=== PATIENT | male | born 1995 | race Caucasian/White ===

== ENCOUNTER 2020-07-06 11:50 | Emergency (ER) | payer SELFPAY ==
[~2020-07-06] VITALS: Ht 193 cm; Wt 108.0 kg
[2020-07-06 11:58] VITALS: BP 120/73
--- NOTE | 2020-07-06 12:36 | PHYS DOC ---
Past History Past Medical History: Asthma, Bronchitis, Pneumonia, Other Additional Past Medical Histor: bowel irregularity (ANTWAN GLEASON APRN) Past Surgical History: No Surgical History (ANTWAN GLEASON APRN) Alcohol Use: Occasionally (ANTWAN GLEASON APRN) Adult General Chief Complaint Chief Complaint: HEADACHE HPI HPI Patient is a 24-year-old male patient who presents with headache for 1 month, with cough for the last month. Patient states no fevers, he had gone to work today, and was told he had a low body temperature and was told he needed to come to the hospital to be evaluated and have a Covid test before he goes back. Denies any specific shortness of breath, however does report he has felt some increased coughing anytime he tries to exert himself. Does endorse a history of asthma, for which he has been taking his inhaler 3 times a day, with little improvement. Does report he frequently gets bronchitis at this time of year, has been hospitalized for once in the past. He reports he has had chronic diarrhea for several years, with no change recently, he has tried to improve his diet light and high-fiber foods he continues to have diarrhea. Does report he has been working abdominals and eating fast food 5 times a day and reports he feels this did not help his GI symptoms. He does have a primary care however has not addressed any GI issues with them. (ANTWAN GLEASON APRN) Review of Systems Review of Systems Constitutional: Denies fever or chills reports malaise [] Eyes: Denies change in visual acuity, redness, or eye pain [] HENT: Denies nasal congestion or sore throat [] Respiratory: Reports cough, reports cough worsened with exertion, denies any specific shortness of breath] Cardiovascular: No additional information not addressed in HPI [] GI: Denies abdominal pain, nausea, vomiting, bloody stools reports chronic diarrhea [] : Denies dysuria or hematuria [] Musculoskeletal: Denies back pain or joint pain [] Integument: Denies rash or skin lesions does report he has had a lump on his forehead for a while [] Neurologic: Denies, focal weakness or sensory changes reports headache for the last month [] Endocrine: Denies polyuria or polydipsia [] All other systems were reviewed and found to be within normal limits, except as documented in this note. (ANTWAN GLEASON APRN) Allergies Allergies Allergies Uncoded Allergies Type Severity Reaction Last Updated Verified PET DANDER Allergy Unknown 07/06/20 (ANTWAN GLEASON APRN) Physical Exam Physical Exam Constitutional: Well developed, well nourished, no acute distress, non-toxic appearance. [] HENT: Normocephalic, atraumatic, bilateral external ears normal, oropharynx moist, no oral exudates, nose normal. [] Eyes: PERRLA, EOMI, conjunctiva normal, no discharge. [] Neck: Normal range of motion, no tenderness, supple, no stridor. [] Cardiovascular:Heart rate regular rhythm, no murmur [] Lungs & Thorax: Bilateral breath sounds clear to auscultation left lower lobe faint crackle conversational in multiple word sentences with no noted air hunger [] Abdomen: Bowel sounds normal, soft, no tenderness, no masses, no pulsatile masses. [] Skin: Warm, dry, no erythema, no rash. [] Back: No tenderness, no CVA tenderness. [] Extremities: No tenderness, no cyanosis, no clubbing, ROM intact, no edema. [] Neurologic: Alert and oriented X 3, normal motor function, normal sensory func tion, no focal deficits noted. [] Psychologic: Affect normal, judgement normal, mood normal. [] (ANTWAN GLEASON APRN) Current Patient Data Vital Signs Vital Signs Date Time Temp Pulse Resp B/P (MAP) Pulse Ox O2 Delivery O2 Flow Rate FiO2 07/06/20 11:58 97.8 82 20 120/73 (89) 97 (ANTWAN GLEASON APRN) EKG EKG [] (ANTWAN GLEASON APRN) Radiology/Procedures Radiology/Procedures []REASON: Cough PROCEDURE: CHEST AP ONLY Single view chest dated 07/06/2020: No comparison available. Clinical Indication: Cough. Findings: Single upright portable exam of the chest was performed. Heart size and mediastinal contours are within normal limits given technique. The lungs are clear without evidence of focal consolidation. Vascular interstitium is within normal limits. Impression:: No acute radiographic abnormality. Electronically signed by: Richie Mora MD (07/06/2020 12:55 PM) [id number] DICTATED AND SIGNED BY: RICHIE MORA MD (ANTWAN GLEASON APRN) Heart Score Risk Factors: Risk Factors: DM, Current or recent (<one month) smoker, HTN, HLP, family history of CAD, obesity. Risk Scores: Risk Factors: DM, Current or recent (<one month) smoker, HTN, HLP, family history of CAD, obesity. (ANTWAN GLEASON APRN) Course & Med Decision Making Course & Med Decision Making Pertinent Labs and Imaging studies reviewed. (See chart for details) []Patient without noted hypoxia, no air hunger. Presenting largely for covid test to return to work. Will do COVID test with recommendation to keep patient off work until he has negative test result. Will provide short course of alverto roids as patient using inhaler for asthma, with history of same, to decrease pulmonary inflammation and improve symptoms. Will recommend use of OTC cough medications as needed or provide Rx for cough medication if requested. Advise patient 2 days quarantine until COVID results, and if positive, 14 day quarantine. Discussed with patient, in agreement with plan without further questions or concerns. To follow up with PCP as needed and for GI symptoms. wants to take OTC cough medications. (ANTWAN GLEASON APRN) Course & Med Decision Making I oversaw on the above date of service of this patient and discussed the care with the [employer]. I agree with the findings, plan of care, and disposition as documented. Christine Crews DO Attending ED Physician (CHRISTINE CREWS DO) Be Disclaimer Be Disclaimer This electronic medical record was generated, in whole or in part, using a voice recognition dictation system. (ANTWAN GLEASON APRN) Departure Departure: Impression: Primary Impression: Bronchitis Additional Impression: Encounter for screening laboratory testing for COVID-19 virus in asymptomatic patient Disposition: 01 DC HOME SELF CARE/HOMELESS Condition: GOOD Referrals: PCP,NO (PCP) Patient Instructions: Acute Bronchitis, Cough, Adult Additional Instructions: As we discussed, take an hasx-bba-kgeyibs cough medication such as Mucinex or Delsym for your cough, take it according to the package directions. Take the steroids as prescribed, to help with your breathing. You may continue to use your inhaler, up to every 4 hours as needed for your breathing. As we discussed, your Covid test will take a 48 hours to come back, if it ends up positive, you will need to stay off of work for 14 days and follow the directions from your flare. If it returns negative, notify your employer that is negative and return to work according to their policy. Try to get into your primary care provider to discuss your chronic GI issues, they want to do any further evaluation of this. Scripts Methylprednisolone (MEDROL) 4 Mg Tab.ds.pk 1 PKG PO UD for bronchitis, #1 PKG Prov: ANTWAN GLEASON APRN 07/06/20 Problem Qualifiers ANTWAN GLEASON APRN Jul 06, 2020 12:36 CHRISTINE CREWS DO Jul 07, 2020 06:31
--- NOTE | 2020-07-06 12:57 | RAD ---
Single view chest dated 07/06/2020: No comparison available. Clinical Indication: Cough. Findings: Single upright portable exam of the chest was performed. Heart size and mediastinal contours are with in normal limits given technique. The lungs are clear without evidence of focal consolidation. Vascul ar interstitium is within normal limits. Impression:: No acute radiographic abnormality. Electronically signed by: Richie Mora MD (07/06/2020 12:55 PM) [id number]
[2020-07-06] MEDS ORDERED: METH4TAB2 PO (13:12)
== END 2020-07-06 13:48 | disposition home or self-care (01) ==
LOC: ER 11:50
DX: J45.909 Unspecified asthma, uncomplicated (principal); Z20.828 Contact with and (suspected) exposure to other viral communicable diseases; Z88.8 Allergy status to other drugs, medicaments and biological substances
CPT/HCPCS: 71045; 99284; C9803; U0003

== ENCOUNTER 2020-09-04 11:21 | Emergency (ER) | payer SELFPAY ==
[~2020-09-04] VITALS: Ht 193 cm; Wt 108.0 kg
[~2020-09-04 11:21] MED LIST: METH4TAB2 PO
[2020-09-04 11:27] VITALS: BP 120/73
[2020-09-04] MEDS ORDERED: IPRATRPIUM/ALBUTEROL 0.5/2.5MG 3 ML NEBU. NEB ONE (11:45)
[2020-09-04] MEDS ORDERED: methylPREDNISolone SOD SUCC PF 125 MG/2 ML VIAL. IM ONE (11:45)
--- NOTE | 2020-09-04 11:47 | PHYS DOC ---
Past History Past Medical History: Asthma, Bronchitis, Pneumonia, Other Additional Past Medical Histor: bowel irregularity Past Surgical History: No Surgical History Alcohol Use: Occasionally General Adult EDM: Chief Complaint: ASTHMA HPI: HPI: Patient is a 24-year-old male coming in for asthma exacerbation. Prior to arrival patient started having shortness of breath when he got to work. Patient states he was also treated for bronchitis with steroids and doxycycline and just finished his medications 3 days ago. Patient states he was feeling better prior to symptom this morning. Patient states he is using his rescue inhaler 9 times without improvement. Has a nonproductive cough. Denies any chest pain or fevers. States he otherwise has been well. Is unsure of what triggered his asthma exacerbation this morning. Review of Systems: Review of Systems: All other systems within normal limits except for as noted in the HPI Current Medications: Current Meds: Current Medications Medications (Trade) Dose Ordered Sig/Madalyn Start Time Stop Time Status Last Admin Dose Admin Albuterol/ Ipratropium (Duoneb) 3 ml 1X ONCE 09/04/20 11:45 09/04/20 11:46 Methylprednisolone Sodium Succinate (SOLU-Medrol 125MG VIAL) 125 mg 1X ONCE 09/04/20 11:45 09/04/20 11:46 Allergies: Allergies: Allergies Uncoded Allergies Type Severity Reaction Last Updated Verified PET DANDER Allergy Unknown 07/06/20 Physical Exam: PE: Constitutional: Well developed, well nourished, no acute distress, non-toxic appearance. Speaking full sentences [] HENT: Normocephalic, atraumatic, bilateral external ears normal, nose normal. [] Eyes: PERRLA, conjunctiva normal, no discharge. [] Neck: No rigidity, supple, no stridor. [] Cardiovascular: Regular rate and rhythm, brisk cap refill [] Lungs & Thorax: Non labored symmetric respirations, mild tachypnea, clear lung sounds without wheezing and good air movement] Abdomen: Soft, nondistended. Skin: Warm, dry, no erythema, no rash. [] Back: Unremarkable Extremities: No deformities, range of motion grossly intact, no lower extremity edema [] Neurologic: Alert and oriented X 3, no focal deficits noted. [] Psychologic: Affect normal, judgement normal, mood normal. [] Current Patient Data: Vital Signs: Vital Signs Date Time Temp Pulse Resp B/P (MAP) Pulse Ox O2 Delivery O2 Flow Rate FiO2 09/04/20 11:27 97.0 86 16 120/73 (89) 98 Room Air EKG: EKG: [] Radiology/Procedures: Radiology/Procedures: HISTORY: Dyspnea, recent bronchitis PA and lateral views were taken of the chest. Heart is normal in size. There is no pleural effusion. There are no confluent infiltrates. IMPRESSION: 1. No acute chest disease. [] Heart Score: Risk Factors: Risk Factors: DM, Current or recent (<one month) smoker, HTN, HLP, family history of CAD, obesity. Risk Scores: Score 0 - 3: 2.5% MACE over next 6 weeks - Discharge Home Score 4 - 6: 20.3% MACE over next 6 weeks - Admit for Clinical Observation Score 7 - 10: 72.7% MACE over next 6 weeks - Early Invasive Strategies Course & Med Decision Making: Course & Med Decision Making Pertinent Labs and Imaging studies reviewed. (See chart for details) [] Dragon Disclaimer: Dragon Disclaimer: This electronic medical record was generated, in whole or in part, using a voice recognition dictation system. Departure Departure: Impression: Primary Impression: Asthma exacerbation Disposition: 01 DC HOME SELF CARE/HOMELESS Condition: IMPROVED Referrals: ROMARIO SMITH MD Patient Instructions: Asthma, Acute Bronchospasm Scripts Prednisone (PREDNISONE) 50 Mg Tablet 1 TAB PO DAILY for steroid for 5 Days, #5 TAB You received this medication in the emergency room today. You will starting your next dose tomorrow. Prov: JAIME HALL MD 09/04/20 Albuterol Sulfate (PROAIR HFA INHALER) 8.5 Gm Hfa.aer.ad 2 PUFF IH PRN Q4-6HRS PRN for wheezing for 21 Days, #1 INHALER 2 Refills Prov: JAIME HALL MD 09/04/20 JAIME HALL MD Sep 04, 2020 11:47
--- NOTE | 2020-09-04 12:06 | RAD ---
PA and lateral chest. HISTORY: Dyspnea, recent bronchitis PA and lateral views were taken of the chest. Heart is normal in size. There is no pleural effusion. There are no confluent infiltrates. IMPRESSION: 1. No acute chest disease. Electronically signed by: Oseas Graham MD (09/04/2020 12:03 PM) [id number]
[2020-09-04] MEDS ORDERED: PRED50TA PO (12:46)
[2020-09-04] MEDS ORDERED: ALBU2.5V8 IH (12:46)
== END 2020-09-04 12:57 | disposition home or self-care (01) ==
LOC: ER 11:21
DX: J45.901 Unspecified asthma with (acute) exacerbation (principal); R06.02 Shortness of breath; Z88.8 Allergy status to other drugs, medicaments and biological substances
CPT/HCPCS: 71046; 94640; 96372; 99283; J2930

== ENCOUNTER 2020-11-18 15:46 | Emergency (ER) | payer SELFPAY ==
[~2020-11-18] VITALS: Ht 193 cm; Wt 108.2 kg
[~2020-11-18 15:46] MED LIST changes: +ALBU2.5V8 IH; +PRED50TA PO
[2020-11-18 17:22] LABS: BASO # 0.1 x10^3/uL (0.0-0.2); BASO % 1 % (0-3); EOS # 0.3 x10^3/uL (0.0-0.7); EOS % 4 % (0-3); HEMATOCRIT 43.5 % (39.0-53.0); HEMOGLOBIN 14.7 g/dL (13.0-17.5); LYMPH # 2.7 x10^3/uL (1.0-4.8); LYMPH % 29 % (24-48); MEAN CORPUSCULAR HEMOGLOBIN 31 pg (25-35); MEAN CORPUSCULAR HGB CONC 34 g/dL (31-37); MEAN CORPUSCULAR VOLUME 92 fL (79-100); MONO # 0.7 x10^3/uL (0.0-1.1); MONO % 8 % (0-9); NEUT # 5.5 x10^3uL (1.8-7.7); NEUT % 59 % (31-73); PLATELET COUNT 191 x10^3/uL (140-400); RED BLOOD COUNT 4.73 x10^6/uL (4.30-5.70); RED CELL DISTRIBUTION WIDTH 13.3 % (11.5-14.5); WHITE BLOOD COUNT 9.3 x10^3/uL (4.0-11.0)
[2020-11-18 17:30] LABS: CALCIUM 8.8 mg/dL (8.5-10.1); CREATININE 0.9 mg/dL (0.7-1.3); GFR 101.2; POTASSIUM 4.1 mmol/L (3.5-5.1)
[2020-11-18] MEDS ORDERED: CONTRAST GIVEN. MC PRN (17:30)
[2020-11-18] MEDS: IOHEXOL 300 MG/ML 75 ML VIAL. IV ONE (17:33)
[2020-11-18 17:38] LABS: ALBUMIN 3.9 g/dL (3.4-5.0); ALBUMIN/GLOBULIN RATIO 1.2 (1.0-1.7); TOTAL BILIRUBIN 0.3 mg/dL (0.2-1.0); TOTAL PROTEIN 7.2 g/dL (6.4-8.2)
[2020-11-18] MEDS: IV NORMAL SALINE 1,000ML 1,000 ML IV ONE (17:44)
[2020-11-18] MEDS: KETOROLAC 30 MG/ML VIAL. IVP ONE (17:45)
[2020-11-18] MEDS: ONDANSETRON PF 4 MG/2 ML VIAL. IVP ONE (17:45)
--- NOTE | 2020-11-18 18:00 | RAD ---
Exam: CT of abdomen and pelvis with contrast INDICATION: Abdominal pain TECHNIQUE: Sequential axial images through the abdomen and pelvis obtained following the administrati on of 95 mL of Omni 300 IV contrast. Sagittal and coronal reformatted images were reconstructed from the axial data and reviewed. Exposure: One or more of the following in the visualized dose reduction techniques were utilized for this examination: 1. Automated exposure control 2. Adjustment of the MA and/or KV according to patient size 3. Use of iterative of reconstructive technique Comparisons: None FINDINGS: Heart size is normal. No pericardial effusion. Strandy opacities at dependent portion lungs likely re presenting atelectasis. Mild diffuse hepatic steatosis. Spleen, pancreas, gallbladder and adrenals are unremarkable. No perinephric inflammation or hydronephrosis. No renal or ureteral calculi are identified. Bladder is distended and appears thin-walled. Prostate is not enlarged. Large and small bowel are unremarkable. Appendix is normal. No free intra-abdominal air or fluid. No obstruction. Abdominal aorta has a normal course caliber. Abdominal vasculature is patent. No enlarged intra-abdominal lymph nodes are identified. No suspicious osseous lesions or acute fractures. IMPRESSION: 1. No acute process identified within the abdomen and pelvis. 2. Mild diffuse hepatic steatosis. Electronically signed by: Rica Davis MD (11/18/2020 5:57 PM) [facility]
[2020-11-18 18:22] LABS: BILIRUBIN,URINE NEG (NEG); CLARITY,URINE CLEAR; COLOR,URINE YELLOW; GLUCOSE,URINE NEG (NEG)
[2020-11-18 18:23] LABS: BACTERIA,URINE 0 /HPF (0-FEW); NITRITE,URINE NEG (NEG); RBC,URINE 0 /HPF (0-2); UROBILINOGEN,URINE 0.2 mg/dL (0.2 mg/dL); WBC,URINE 0 /HPF (0-4)
[2020-11-18 18:26] VITALS: BP 123/70
--- NOTE | 2020-11-18 18:51 | PHYS DOC ---
Past History Past Medical History: Asthma, Bronchitis, Pneumonia, Other Additional Past Medical Histor: bowel irregularity, asperger Past Surgical History: No Surgical History Alcohol Use: Occasionally Adult General Chief Complaint Chief Complaint: ABDOMINAL PAIN HPI HPI Patient is a 25-year-old male who presents to the emergency department with complaints of lightheadedness head of been going on for "quite some time, diarrhea every day for the past 6 years, vomiting every day for the past 2 weeks, currently denies nausea, reports frontal headache for the past 3 weeks radiating a 1/10 on a 1-10 pain scale. Patient reports his headache is attributed to 3 of his wisdom teeth that have been hurting badly for the past 2 weeks in which he seen a dentist who has recommended they be pulled. Patient states he is still thinking about getting them pulled. Patient reports he has had a work-up at his primary care physicians Dr. Smith office who has been trying to get a hold of him to review his lab work and findings, however patient states that he works so much during Dr. Smith's working hours that he is unable to get a hold of him. Patient states that his employer [email or web address] will not allow him to call his primary care physician's office during working hours. Patient denies chest pain, denies shortness of breath, denies nasal congestion, states that he has had chest congestion for several years attributing this to his pack a day cigarette smoking and he is asthmatic. Patient denies allergies to medications, states that he only takes albuterol MDI as needed as needed for acute asthma attacks. Patient reports abdominal pain on lower left and lower right quadrant to palpation only, denies penile discharge, denies any urinary tract infection type signs and symptoms. Patient denies any pain with ejaculation. Patient denies testicular pain. Patient denies any recent fever or chills. Patient states he has not taken any medications for his aches or pains. Review of Systems Review of Systems 14 body systems of review of systems have been reviewed. See HPI for pertinent positives and negative responses, otherwise all other systems are negative, nonpertinent or noncontributory. Current Medications Current Medications Current Medications Medications (Trade) Dose Ordered Sig/Madalyn Start Time Stop Time Status Last Admin Dose Admin Info (Do NOT chart on this entry -- for MONITORING) 1 each PRN DAILY PRN 11/18/20 17:30 11/20/20 17:29 Iohexol (Omnipaque 300 Mg/ml) 75 ml 1X ONCE 11/18/20 17:30 11/18/20 17:31 DC 11/18/20 17:33 75 ML Ketorolac Tromethamine (Toradol 30mg Vial) 30 mg 1X ONCE 11/18/20 17:00 11/18/20 17:01 DC 11/18/20 17:45 30 MG Ondansetron HCl (Zofran) 4 mg 1X ONCE 11/18/20 17:00 11/18/20 17:01 DC 11/18/20 17:45 4 MG Sodium Chloride 1,000 ml @ 1,000 mls/hr 1X ONCE 11/18/20 17:00 11/18/20 17:59 DC 11/18/20 17:44 1,000 MLS/HR Allergies Allergies Allergies Uncoded Allergies Type Severity Reaction Last Updated Verified PET DANDER Allergy Unknown 07/06/20 Physical Exam Physical Exam Constitutional: Well developed, well nourished, no acute distress, non-toxic appearance. 25-year-old male in no apparent distress. HENT: Normocephalic, atraumatic, bilateral external ears normal, oropharynx moist, no oral exudates, nose normal. Oropharynx moist, pink, no deep tissue infectious process appreciated, no drooling, no trismus, no lymphadenopathy of the head or neck appreciated. Bilateral TMs within normal limits, bilateral external auditory canals within normal limits, no drainage appreciated. Eyes: PERRLA, EOMI, conjunctiva normal, no discharge. Neck: Normal range of motion, no tenderness, supple, no stridor. No midline spinal tenderness, no nuchal rigidity, no meningismus signs. Cardiovascular:Heart rate regular rhythm, no murmur, heart sounds S1-S2 to auscultation. Lungs & Thorax: Bilateral breath sounds clear to auscultation no adventitious lung sounds to auscultation. Abdomen: Bowel sounds normal, soft, no masses, no pulsatile masses. Pain to palpation left lower quadrant, right lower quadrant. No rebound tenderness, no McBurney's point tenderness, negative psoas sign, negative Conde sign. No bruising or areas of ecchymosis of the abdomen. Skin: Warm, dry, no erythema, no rash. Back: No tenderness, no CVA tenderness. Extremities: No tenderness, no cyanosis, no clubbing, ROM intact, no edema. Distal cap refill less than 2 seconds, +2/4 pulses. Neurologic: Alert and oriented X 3, normal motor function, normal sensory function, no focal deficits noted. Psychologic: Affect normal, judgement normal, mood normal. Current Patient Data Vital Signs Vital Signs Date Time Temp Pulse Resp B/P (MAP) Pulse Ox O2 Delivery O2 Flow Rate FiO2 11/18/20 18:26 66 18 123/70 (87) 99 Room Air 11/18/20 16:17 97.8 Lab Results Laboratory Tests Test 11/18/20 17:00 11/18/20 17:56 White Blood Count 9.3 x10^3/uL (4.0-11.0) Red Blood Count 4.73 x10^6/uL (4.30-5.70) Hemoglobin 14.7 g/dL (13.0-17.5) Hematocrit 43.5 % (39.0-53.0) Mean Corpuscular Volume 92 fL (79-100) Mean Corpuscular Hemoglobin 31 pg (25-35) Mean Corpuscular Hemoglobin Concent 34 g/dL (31-37) Red Cell Distribution Width 13.3 % (11.5-14.5) Platelet Count 191 x10^3/uL (140-400) Neutrophils (%) (Auto) 59 % (31-73) Lymphocytes (%) (Auto) 29 % (24-48) Monocytes (%) (Auto) 8 % (0-9) Eosinophils (%) (Auto) 4 % (0-3) H Basophils (%) (Auto) 1 % (0-3) Neutrophils # (Auto) 5.5 x10^3uL (1.8-7.7) Lymphocytes # (Auto) 2.7 x10^3/uL (1.0-4.8) Monocytes # (Auto) 0.7 x10^3/uL (0.0-1.1) Eosinophils # (Auto) 0.3 x10^3/uL (0.0-0.7) Basophils # (Auto) 0.1 x10^3/uL (0.0-0.2) Sodium Level 141 mmol/L (136-145) Potassium Level 4.1 mmol/L (3.5-5.1) Chloride Level 105 mmol/L (98-107) Carbon Dioxide Level 29 mmol/L (21-32) Anion Gap 7 (6-14) Blood Urea Nitrogen 15 mg/dL (8-26) Creatinine 0.9 mg/dL (0.7-1.3) Estimated GFR (Cockcroft-Gault) 101.2 BUN/Creatinine Ratio 17 (6-20) Glucose Level 91 mg/dL (70-99) Calcium Level 8.8 mg/dL (8.5-10.1) Total Bilirubin 0.3 mg/dL (0.2-1.0) Aspartate Amino Transferase (AST) 19 U/L (15-37) Alanine Aminotransferase (ALT) 33 U/L (16-63) Alkaline Phosphatase 54 U/L (46-116) Total Protein 7.2 g/dL (6.4-8.2) Albumin 3.9 g/dL (3.4-5.0) Albumin/Globulin Ratio 1.2 (1.0-1.7) Lipase 59 U/L (73-393) L Urine Collection Type Unknown Urine Color Yellow Urine Clarity Clear Urine pH 7.0 Urine Specific [place] 1.020 Urine Protein Trace (NEG-TRACE) Urine Glucose (UA) Neg mg/dL (NEG) Urine Ketones (Stick) Neg mg/dL (NEG) Urine Blood Neg (NEG) Urine Nitrite Neg (NEG) Urine Bilirubin Neg (NEG) Urine Urobilinogen Dipstick 0.2 mg/dL (0.2 mg/dL) Urine Leukocyte Esterase Neg (NEG) Urine RBC 0 /HPF (0-2) Urine WBC 0 /HPF (0-4) Urine Squamous Epithelial Cells None /LPF Urine Bacteria 0 /HPF (0-FEW) EKG EKG [] Radiology/Procedures Radiology/Procedures PATIENT: JOSEPH JENKINS ACCOUNT: [id number] : 1995 LOCATION: ER AGE: 25 SEX: M EXAM STATUS: REG ER ORD. PHYSICIAN: JOSE GOMEZ APRN REASON: ABD PAINS. N/V X 1 MONTH. OMNI 300 75ML PROCEDURE: CT ABD PELV W/ IV CONTRST ONLY Exam: CT of abdomen and pelvis with contrast INDICATION: Abdominal pain TECHNIQUE: Sequential axial images through the abdomen and pelvis obtained following the administration of 95 mL of Omni 300 IV contrast. Sagittal and coronal reformatted images were reconstructed from the axial data and reviewed. Exposure: One or more of the following in the visualized dose reduction techniques were utilized for this examination: 1. Automated exposure control 2. Adjustment of the MA and/or KV according to patient size 3. Use of iterative of reconstructive technique Comparisons: None FINDINGS: Heart size is normal. No pericardial effusion. Strandy opacities at dependent portion lungs likely representing atelectasis. Mild diffuse hepatic steatosis. Spleen, pancreas, gallbladder and adrenals are unremarkable. No perinephric inflammation or hydronephrosis. No renal or ureteral calculi are identified. Bladder is distended and appears thin-walled. Prostate is not enlarged. Large and small bowel are unremarkable. Appendix is normal. No free intra- abdominal air or fluid. No obstruction. Abdominal aorta has a normal course caliber. Abdominal vasculature is patent. No enlarged intra-abdominal lymph nodes are identified. No suspicious osseous lesions or acute fractures. IMPRESSION: 1. No acute process identified within the abdomen and pelvis. 2. Mild diffuse hepatic steatosis. Electronically signed by: Rica Christopher MD (11/18/2020 5:57 PM) [facility] DICTATED AND SIGNED BY: RICA CHRISTOPHER MD DATE: 11/18/201753 CC: JOSE GOMEZ APRN; EMERGENCY,DEPARTMENT; ROMARIO SMITH MD ~MTH0 0 Heart Score C/O Chest Pain: No Risk Factors: Risk Factors: DM, Current or recent (<one month) smoker, HTN, HLP, family history of CAD, obesity. Risk Scores: Risk Factors: DM, Current or recent (<one month) smoker, HTN, HLP, family history of CAD, obesity. Course & Med Decision Making Course & Med Decision Making Pertinent Labs and Imaging studies reviewed. (See chart for details) 25-year-old male, vital signs reviewed, presents to the emergency department with multiple concerns to include lightheadedness, headaches, diarrhea, nausea, vomiting, wisdom teeth pain, symptoms range from 6 years to 2 weeks. Physical examination was on remarkable. Related to patient's chief complaint will order CBC, CMP, lipase, CT abdomen pelvis with IV contrast to rule out acute abdominal process, urinalysis assay. We will start IVs/saline lock 1 L normal saline, give 30 mg IV Toradol, 4 mg ondansetron. Upon reexamination and patient, patient states he feels 100% better, is pain- free, nausea free, states he has no further complaints and wishes to go home at this time. Discussed patient's CT abdomen findings read by house radiologist interpretation as negative for acute process however did note a fatty liver. Discussed fatty liver with patient, discussed precautions and concerns, discussed with patient to follow-up with his primary care physician Dr. Smith for ongoing evaluation of this abnormal CT. 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 Patient gave verbal understanding of discharge home instructions, follow-up with primary care soon to review abnormal CT, return to ER precautions or concerns, patient had no further questions or concerns and was discharged home without incident. Dragon Disclaimer Dragon Disclaimer This electronic medical record was generated, in whole or in part, using a voice recognition dictation system. Departure Departure: Impression: Primary Impression: Abdominal pain of unknown etiology Additional Impression: Abnormal CT of the abdomen Disposition: HOME / SELF CARE / HOMELESS Condition: GOOD Referrals: ROMARIO SMITH MD (PCP) Additional Instructions: You were seen in emergency department for abdominal pain, lightheadedness, headaches, dizziness. You are treated with normal saline, IV pain medication and IV antinausea medicine. Your symptoms have resolved while you are in the emergency department. As we discussed there were no acute or concerning find ings on your CAT scan however it did incidentally find a condition of fatty liver. We had discussed you following up with your primary care physician for ongoing evaluation of your fatty liver. We have discussed lifestyle changes to help suppress the ongoing fatty liver condition. Please see Dr. Smith soon. Return to the emergency department for worsening symptoms or other concerns. We have discussed your ongoing diarrhea, there were no findings in the abdominal CT to suggest this is from an infectious process. We have discussed trying [id number] Metamucil or MiraLAX for bowel control. EMERGENCY DEPARTMENT GENERAL DISCHARGE INSTRUCTIONS Thank you for coming to [facility] (ED) today and trusting us with you care. We trust that you had a positivie experience in our Emergency Department. If you wish to speak to the department management, you may call the director at [phone]. YOUR FOLLOW UP INSTRUCTIONS ARE FOLLOWS: 1. Do you have a private Doctor? If you do not have a private doctor, please ask for a resource list of physicians or clinics that may be able to assist you with follow up care. 2. The Emergency Physician has interpreted your x-rays. The X-Ray specialist will also review them. If there is a change in the findings, you will be notified in 48 hours when at all possible. 3. A lab test or culture has been done, your results will be reviewed and you will be notified if you need a change in treatment. ADDITIONAL INSTRUCTIONS AND INFORMATION: 1. Your care today has been supervised by a physician who is specially trained in emergency care. Many problems require more than one evaluation for a complete diagnosis and treatment. We recommend that you schedule your follow up appointment as recommended to ensure complete treatment of you illness or injury. If you are unable to obtain follow up care and continue to have a problem, or if your condition worsens, we recommend that you return to the ED. 2. We are not able to safely determine your condition over the phone nor are we able to give sound medical advice over the phone. For these safety reasons, if you call for medical advice we will ask you to come to the ED for further evaluation. 3. If you have any questions regarding these discharge instructions please call the ED at [phone]. SAFETY INFORMATION: In the interest of safety, wellness, and injury prevention; we encourage you to wear your sealbelt, if you smoke; quite smoking, and we encourage family to use a protective helmet for bicycling and other sporting events that present an increased risk for head injury. IF YOUR SYMPTOMS WORSEN OR NEW SYMPTOMS DEVELOP, OR YOU HAVE CONCERNS ABOUT YOUR CONDITION; OR IF YOUR CONDITION WORSENS WHILE YOU ARE WAITING FOR YOUR FOLLOW UP A PPOINTMENT; EITHER CONTACT YOUR PRIMARY CARE DOCTOR, THE PHYSICIAN WHOSE NAME AND NUMBER YOU WERE GIVEN, OR RETURN TO THE ED IMMEDIATELY. Problem Qualifiers JOSE GOMEZ APRN Nov 18, 2020 18:51
== END 2020-11-18 18:59 | disposition home or self-care (01) ==
LOC: ER 15:46
DX: R93.5 Abnormal findings on diagnostic imaging of other abdominal regions, including retroperitoneum (principal); R10.32 Left lower quadrant pain; R10.31 Right lower quadrant pain; R19.7 Diarrhea, unspecified; R11.10 Vomiting, unspecified; R51.9 Headache, unspecified; J45.909 Unspecified asthma, uncomplicated; Z88.8 Allergy status to other drugs, medicaments and biological substances
CPT/HCPCS: 36415; 74177; 80053; 81001; 83690; 85025; 96361; 96374; 96375; 99285; J1885; J2405; J7030; Q9967

== ENCOUNTER 2021-09-06 06:29 | Emergency (ER) | payer SELFPAY ==
[~2021-09-06] VITALS: Ht 193 cm; Wt 108.8 kg
[2021-09-06 06:41] VITALS: BP 133/87
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
[2021-09-06 07:30] LABS: BASO % 1 % (0-3); EOS # 0.5 x10^3/uL (0.0-0.7); EOS % 7 % (0-3); HEMATOCRIT 43.5 % (39.0-53.0); HEMOGLOBIN 14.8 g/dL (13.0-17.5); LYMPH # 2.8 x10^3/uL (1.0-4.8); LYMPH % 36 % (24-48); MEAN CORPUSCULAR HEMOGLOBIN 31 pg (25-35); MEAN CORPUSCULAR HGB CONC 34 g/dL (31-37); MEAN CORPUSCULAR VOLUME 92 fL (79-100); MONO # 0.8 x10^3/uL (0.0-1.1); MONO % 11 % (0-9); NEUT # 3.6 x10^3uL (1.8-7.7); NEUT % 46 % (31-73); PLATELET COUNT 211 x10^3/uL (140-400); RED BLOOD COUNT 4.71 x10^6/uL (4.30-5.70); RED CELL DISTRIBUTION WIDTH 13.1 % (11.5-14.5); WHITE BLOOD COUNT 7.8 x10^3/uL (4.0-11.0)
[2021-09-06 07:42] LABS: GFR 89.6; POTASSIUM 4.1 mmol/L (3.5-5.1)
[2021-09-06 07:49] LABS: ALBUMIN/GLOBULIN RATIO 1.2 (1.0-1.7); TOTAL BILIRUBIN 0.3 mg/dL (0.2-1.0); TOTAL PROTEIN 7.3 g/dL (6.4-8.2)
[2021-09-06 08:19] LABS: BARBITURATES NEG (NEG); BENZODIAZEPINES NEG (NEG); CANNABINOIDS NEG (NEG); COCAINE NEG (NEG); METHADONE NEG (NEG); OPIATES NEG (NEG); PHENCYCLIDINE NEG (NEG)
[2021-09-06 08:21] LABS: AMPHETAMINE/METHAMPHETAMINE NEG (NEG)
[2021-09-06 08:31] LABS: COLOR,URINE YELLOW
[2021-09-06 08:32] LABS: BACTERIA,URINE 0 /HPF (0-FEW); CLARITY,URINE CLEAR; GLUCOSE,URINE NEG (NEG); NITRITE,URINE NEG (NEG); SQUAMOUS EPITHELIAL CELL,UR FEW /LPF; UROBILINOGEN,URINE 0.2 mg/dL (0.2 mg/dL)
== END 2021-09-06 10:19 | disposition home or self-care (01) ==
LOC: ER 06:29
DX: R44.0 Auditory hallucinations (principal); A63.0 Anogenital (venereal) warts
CPT/HCPCS: 36415; 80053; 80307; 81001; 85025; 87491; 87591; 99283-25